=== PATIENT | female | born 2000 | race American Indian/Alaskan Native ===

== ENCOUNTER 2020-07-17 05:12 | Emergency (ER) | payer SELFPAY ==
[2020-07-17 05:37] VITALS: BP 115/67
[2020-07-17] MEDS ORDERED: IBUPROFEN 800 MG TAB PO ONE (06:17)
[2020-07-17] MEDS ORDERED: predniSONE 20 MG TAB PO ONE (06:17)
--- NOTE | 2020-07-17 06:23 | Emergency Department Report ---
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 Patient presents today for right forearm pain 7/10 exacerbated by movement and palpation. Pain radiates up to her right shoulder, patient denies history of fall injury or trauma. Patient does endorse tingling sensation no history of cervical injury. There are no lacerations abrasions or obvious deformities noted ED Review of Systems ROS: Stated complaint: RT ARM PAIN Other details as noted in HPI Constitutional: denies: chills, fever Eyes: denies: eye pain, eye discharge, vision change ENT: denies: ear pain, throat pain Respiratory: denies: cough, shortness of breath, wheezing Cardiovascular: denies: chest pain, palpitations Endocrine: no symptoms reported Gastrointestinal: denies: abdominal pain, nausea, diarrhea Genitourinary: denies: urgency, dysuria, discharge Musculoskeletal: myalgia Skin: denies: rash, lesions Neurological: denies: headache, weakness, paresthesias Psychiatric: denies: anxiety, depression Hematological/Lymphatic: denies: easy bleeding, easy bruising ED Past Medical Hx - Past Medical History Previous Medical History?: No - Surgical History Past Surgical History?: No - Social History Smoking Status: Never Smoker Substance Use Type: None - Medications Home Medications: Home Medications Medication Instructions Recorded Confirmed Last Taken Type Menthol/Camphor [Monroe Wyarno 1 applic TP Q6H PRN #1 tube 07/17/20 Unknown Rx Ointment] Naproxen 500 mg PO BID PRN #30 tablet 07/17/20 Unknown Rx predniSONE [Deltasone] 40 mg PO QDAY 5 Days #10 tab 07/17/20 Unknown Rx Upper Extremity Exam - Exam General: Vital signs noted. No distress. Alert and acting appropriately. Head and Torso: No HEENT Abnormality, No Neck Tenderness, No Chest/Lungs Abnormality, No Abdominal Tenderness, No Back Tenderness Shoulder Exam: Yes Normal Range of Motion in Shoulder, No Shoulder Tenderness, No Clavicle Tenderness, No Shoulder Deformity, No AC Joint Tenderness Arm Exam: No Arm/Humerus Tenderness, No Arm Deformity Elbow: No Elbow Tenderness, No Normal Range of Motion in Elbow, No Elbow Deformity Forearm: Yes Forearm Tenderness (Pain to carpal region tPain to carpel regioin x-ray ), Yes Pain with Pronation, Yes Pain with Supination, No Forearm Deformity Wrist: Yes Wrist Tenderness, Yes Normal ROM in Wrist, No Wrist Deformity, No Snuffbox Tenderness, No Pain with Axial Thumb Compression Hand: Yes Normal ROM in Digit(s), No Hand Tenderness, No Hand Deformity, No Digit Tenderness, No Digit(s) Deformity, No Tendon Dysfunction CMS Exam: Yes Normal Distal Pulses, Yes Normal Capillary Refill, Yes Normal Distal Sensation, No Broken Skin ED Course Vital Signs 07/17/20 05:32 Temperature 98.2 F Pulse Rate 86 Respiratory 14 Rate Blood Pressure 115/67 [Right] O2 Sat by Pulse 100 Oximetry ED Medical Decision Making - Medical Decision Making Distal pulses intact, 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 Patient will follow-up with primary care doctor in 2 to 3 days. Patient verbalizes agreement and understanding with discharge plan. Patient will be DC'd home in stable condition at this time. Critical care attestation.: If time is entered above; I have spent that time in minutes in the direct care of this critically ill patient, excluding procedure time. ED Disposition Clinical Impression: Overuse injury, Carpal tunnel syndrome on right Disposition: DC-01 TO HOME OR SELFCARE Is pt being admited?: No Does the pt Need Aspirin: No Condition: Stable Instructions: Preventing Carpal Tunnel Syndrome, Hand Exercises, Preventing Overuse Injuries, Adult Prescriptions: predniSONE [Deltasone] 40 mg PO QDAY 5 Days #10 tab Naproxen 500 mg PO BID PRN #30 tablet PRN Reason: pain Menthol/Camphor [Monroe Wyarno Ointment] 1 applic TP Q6H PRN #1 tube PRN Reason: pain Referrals: PRIMARY MD FATOUMATA [Primary Care Provider] - 3-5 Days MARCY OSULLIVAN MD [Staff Physician] - 3-5 Days Forms: Work/School Release Form(ED) Time of Disposition: 06:27
== END 2020-07-17 06:50 | disposition home or self-care (01) ==
LOC: ED 05:12
DX: G56.01 Carpal tunnel syndrome, right upper limb (principal); M70.90 Unspecified soft tissue disorder related to use, overuse and pressure of unspecified site; Z79.899 Other long term (current) drug therapy
CPT/HCPCS: 29125; 99283; J7512